=== PATIENT | male | born 1965 | race African-American/Black ===

== ENCOUNTER 2016-09-18 22:57 | Emergency (ER) | payer SELFPAY ==
[~2016-09-18] VITALS: Ht 170.2 cm; Wt 127.0 kg
[~2016-09-18 22:57] MED LIST: BACTRIM DS TAB1 EAC1 ORAL; IBUPROFEN600 MG ORAL; KEFLEX500 MG ORAL; NORCO 5-325 TA1 EACH ORAL
[2016-09-18] MEDS ORDERED: NKM (23:10)
[2016-09-19] MEDS ORDERED: IBUPROFEN800 MG ORAL (00:11)
[2016-09-19] MEDS ORDERED: ROBAXIN-750750 MG PO (00:11)
[2016-09-19] MEDS ORDERED: Ketorolac 60mg Inj IM ONE (00:15)
[2016-09-19] MEDS ORDERED: Methocarbamol 750mg tab ORAL ONE (00:15)
[2016-09-19 00:45] VITALS: BP 112/71
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
== END 2016-09-19 00:45 | disposition home or self-care (01) ==
LOC: EMR 23:29
DX: M54.5 Low back pain (principal); M54.2 Cervicalgia; M54.9 Dorsalgia, unspecified; V89.2XXA Person injured in unspecified motor-vehicle accident, traffic, initial encounter; V43.92XA Unspecified car occupant injured in collision with other type car in traffic accident, initial encounter; Y92.488 Other paved roadways as the place of occurrence of the external cause
CPT/HCPCS: 99284